=== PATIENT | male | born 1960 | race Caucasian/White ===

== ENCOUNTER 2017-02-28 09:57 | Emergency (ER) | payer SELFPAY ==
[2017-02-28 11:07] VITALS: BP 107/69
--- NOTE | 2017-02-28 12:02 | Emergency Department Report ---
ED General Adult HPI - General Chief complaint: Laceration/Recheck/Suture Stated complaint: STAPLE REMOVAL Time Seen by Provider: 02/28/17 11:27 Source: patient Mode of arrival: Ambulatory Limitations: No Limitations - History of Present Illness Initial comments: PT states while he was at [facility], he slipped on the floor and hit his head. PT states he had brief loc or 2-3 seconds. PT states the injury occurred 02-14-17. PT states he was evaluated at [facility] and he was admitted for his head injury. PT states he had US and MRI and they were normal. PT states he has abdelrahman in the back of his head and he needs them removed. PT states he is back home now and has local PMD. PT denies drainage from staple site but still report pain. Complaint: staple removal Onset/Timin -: Sudden, week(s) Location: head Severity scale (0 -10): 8 Quality: aching Consistency: constant Improves with: none Associated Symptoms: headaches. denies: confusion Treatments Prior to Arrival: none - Related Data Home Medications Medication Instructions Recorded Confirmed Last Taken Losartan [Cozaar] 100 mg PO QDAY 02/28/17 02/28/17 02/27/17 1tab Trazodone HCl [Trazodone HCl] 1 tab PO QHS 02/28/17 02/28/17 02/27/17 t-1 Xanax TAB 1 tab PO QAM 02/28/17 02/28/17 02/27/17 1 Previous Rx's Medication Instructions Recorded Last Taken Type Ibuprofen [Motrin] 600 mg PO Q8H PRN #15 tablet 02/28/17 Unknown Rx Allergies Allergy/AdvReac Type Severity Reaction Status Date / Time IV Dye Allergy Hives Uncoded 02/28/17 10:19 ED Review of Systems ROS: Stated complaint: STAPLE REMOVAL Other details as noted in HPI Comment: All other systems reviewed and negative Cardiovascular: denies: chest pain Gastrointestinal: denies: abdominal pain, nausea, vomiting Musculoskeletal: other (denies neck pain ) Skin: other (denies drainage from staple site ) Neurological: headache ED Past Medical Hx - Past Medical History Previous Medical History?: Yes Hx of Cancer: Yes - Surgical History Past Surgical History?: Yes Additional Surgical History: Colonoscopy - Social History Smoking Status: Current Every Day Smoker Substance Use Type: Alcohol - Medications Home Medications: Home Medications Medication Instructions Recorded Confirmed Last Taken Type Ibuprofen [Motrin] 600 mg PO Q8H PRN #15 tablet 02/28/17 Unknown Rx Losartan [Cozaar] 100 mg PO QDAY 02/28/17 02/28/17 02/27/17 History 1tab Trazodone HCl [Trazodone HCl] 1 tab PO QHS 02/28/17 02/28/17 02/27/17 History t-1 Xanax TAB 1 tab PO QAM 02/28/17 02/28/17 02/27/17 History 1 ED Physical Exam - General Limitations: No Limitations General appearance: alert, in no apparent distress - Head Head exam: Present: normocephalic, other (post scalp with 2 cm scab and [address], no surrounding erythema or drainage ) - Eye Eye exam: Present: normal appearance, EOMI, other (pupils constricted ). Absent : conjunctival injection, nystagmus Pupils: Present: normal accommodation - ENT ENT exam: Present: normal orophraynx, normal external ear exam, other (pt missing multiple teeth) - Neck Neck exam: Present: normal inspection, full ROM. Absent: tenderness - Respiratory Respiratory exam: Present: normal lung sounds bilaterally. Absent: respiratory distress - Cardiovascular Cardiovascular Exam: Present: regular rate - GI/Abdominal GI/Abdominal exam: Present: soft. Absent: tenderness - Extremities Exam Extremities exam: Present: normal inspection, full ROM - Back Exam Back exam: Present: normal inspection, full ROM. Absent: tenderness - Neurological Exam Neurological exam: Present: alert, oriented X3, normal gait - Psychiatric Psychiatric exam: Present: normal affect, normal mood - Skin Skin exam: Present: warm, dry, intact, other (abdelrahman to scalp ) ED Course Vital Signs 02/28/17 02/28/17 10:19 11:06 Temperature 98.3 F 98.0 F Pulse Rate 97 H 83 Respiratory 16 18 Rate Blood Pressure 127/82 Blood Pressure 107/69 [Right] O2 Sat by Pulse 100 99 Oximetry - Reevaluation(s) Reevaluation #1: 02/28/17 11:58 2 abdelrahman removed from post scalp. skin remains intact. Reevaluation #2: 02/28/17 12:05 PT states he just wants to go home. PT does not want further work up for headache. PT states he was told he would have headache due to the "good lump" that he had on his head. PT advised to follow up with PCP. - Pulse Oximetry Interpretation Digit-Finger Initial Pulse Oximetry Readin Actions Taken: none ED Medical Decision Making - Differential Diagnosis staple removal, post traumatic headache Critical Care Time: No Critical care attestation.: If time is entered above; I have spent that time in minutes in the direct care of this critically ill patient, excluding procedure time. ED Disposition Clinical Impression: Removal of abdelrahman Disposition: DISCHARGED TO HOME OR SELFCARE Is pt being admited?: No Does the pt Need Aspirin: No Condition: Stable Instructions: Suture Removal (ED) Referrals: PRIMARY CARE, [Primary Care Provider] - 3-5 Days ALICJA MONTEIRO MD, PHD [Staff Physician] - 3-5 Days Time of Disposition: 11:59
== END 2017-02-28 12:12 | disposition home or self-care (01) ==
LOC: ED 09:57
DX: R51 Headache (principal); F17.200 Nicotine dependence, unspecified, uncomplicated
CPT/HCPCS: 99282

== ENCOUNTER 2017-03-20 09:02 | Emergency (ER) | payer MEDICARE ==
[2017-03-20 09:09] VITALS: BP 136/74
[2017-03-20 09:32] LABS: Basophils % (Auto) 0.7 % (0.0-1.8); Eosinophils % (Auto) 4.8 % (0.0-4.3); Hemoglobin 10.7 gm/dl (11.8-15.2); Mean Corpuscular HGB Conc 33 % (32-34); Mean Corpuscular Hemoglobin 29 pg (28-32); Mean Corpuscular Volume 85 fl (84-94); Platelet Count 234 K/mm3 (140-440); Red Blood Count 3.75 M/mm3 (3.65-5.03); Red Cell Distribution Width 15.2 % (13.2-15.2); White Blood Count 10.3 K/mm3 (4.5-11.0)
[2017-03-20 09:47] LABS: BUN/Creatinine Ratio 15.71; Calcium 9.5 mg/dL (8.4-10.2); Chloride 102.1 mmol/L (98-107); Potassium 4.7 mmol/L (3.6-5.0)
[2017-03-20 13:22] LABS: Urine Drugs of Abuse Note Disclamer
[2017-03-20 13:45] LABS: Bacteria,Urine 1+ /HPF (Negative); Bilirubin,Urine NEG (Negative); Blood,Urine NEG (Negative); Ketones,Urine NEG (Negative); Leukocyte Esterase,Urine SM (Negative); Mucus,Urine FEW /HPF; Nitrite,Urine NEG (Negative); Protein,Urine <15 mg/dL mg/dL (Negative); Urobilinogen,Urine < 2.0 mg/dL (<2.0)
== END 2017-03-20 16:36 ==
LOC: ED 09:02
DX: Z53.21 Procedure and treatment not carried out due to patient leaving prior to being seen by health care provider (principal)
CPT/HCPCS: 36415; 80048; 80307; 81001; 85025; G0480; 80320